=== PATIENT | female | born 1945 | race Caucasian/White ===

== ENCOUNTER 2020-05-20 10:19 | Outpatient (CLI) | payer MEDICARE ==
--- NOTE | 2020-05-20 10:55 | BD ---
EXAM: DEXA bone density examination HISTORY: 75-year-old postmenopausal female for screening COMPARISON: None FINDINGS: L1--bone mineral density 1.059 g/sq cm; T score 0.6 L2--bone mineral density 1.135 g/sq cm; T score 1.0 L3--bone mineral density 0.892 g/sq cm; T score -1.7 L4--bone mineral density 1.035 g/sq cm; T score -0.2 Total L1-L4--bone mineral density 1.027 g/sq cm; T score -0.2 Left femoral neck--bone mineral density0.673; T score -1.6 Total proximal left femur--bone mineral density 0.837; T score -0.9 IMPRESSION: Osteopenia.
== END 2020-05-20 10:20 | disposition home or self-care (01) ==
LOC: BICMAMMO 10:19
PROVIDERS: ATTEND Family Medicine
DX: Z13.820 Encounter for screening for osteoporosis (principal); Z78.0 Asymptomatic menopausal state; M85.89 Other specified disorders of bone density and structure, multiple sites
CPT/HCPCS: 77080